=== PATIENT | male | born 1960 | race African-American/Black ===

== ENCOUNTER 2017-09-27 07:48 | Emergency (ER) | payer SELFPAY ==
[~2017-09-27] VITALS: Ht 173.2 cm; Wt 102.0 kg
[2017-09-27 07:50] VITALS: BP 194/122; PULSE 77; RESP 17; TEMP 98.2; O2SAT 100
[2017-09-27 07:59] VITALS: BP 181/117; PULSE 81; RESP 16; O2SAT 100
[2017-09-27] MEDS ORDERED: LOSA25TA PO (08:02)
[2017-09-27] MEDS ORDERED: RESP: ALBUTEROL 2.5 MG/IPRATROPIUM 0.5 MG NEB (SCH) NEB ONE (08:30)
[2017-09-27] MEDS ORDERED: ALBU0.08 NEB (09:04)
[2017-09-27] MEDS ORDERED: HUMIBIDDM PO (09:04)
--- NOTE | 2017-09-27 09:04 | RADRPT ---
EXAM DATE/TIME: 09/27/2017 08:50 [facility] COMPARISON: No previous studies available for comparison. INDICATIONS : Shortness of breath with history of asthma. MEDICAL HISTORY : Asthma SURGICAL HISTORY : None. ENCOUNTER: Initial ACUITY: 2 days PAIN SCORE: LOCATION: Bilateral chest FINDINGS: Portable AP view of the chest demonstrates a normal-sized cardiac silhouette. No effusion, consolidat ion, or pneumothorax is visualized. The bones and soft tissues demonstrate no acute abnormality. CONCLUSION: No acute cardiopulmonary abnormality is identified. Timothy Bernal MD on September 27, 2017 at 9:01 Board Certified Radiologist. This report was verified electronically.
--- NOTE | 2017-09-27 09:04 | PD ---
HPI Chief Complaint: Cold / Flu Symptoms Time Seen by Provider: 07:58 Travel History International Travel<30 days: No Contact w/Intl Traveler<30days: No Traveled to known affect area: No History of Present Illness HPI To 57-year-old man who presents emergent department complaining of cough cold symptoms been ongoing for the past month or so. States he's had some productive cough. A little bit of congestion. No fevers or chills. Several family members have also been sick. Does not smoke. Otherwise has been doing well. History Past Medical History Narrative Medical Hypertension Influenza Vaccination: No Past Surgical History Surgical History: No Previous Surgery Social History Alcohol Use: Yes (OCCASIONALLY) Tobacco Use: No Allergies-Medications (Allergen,Severity, Reaction): Coded Allergies: No Known Allergies (Unverified , 09/27/17) Reported Meds & Prescriptions Reported Meds & Active Scripts Active Reported Losartan (Losartan Potassium) 25 Mg Tab 10 Mg PO HS Review of Systems Except as stated in HPI: all other systems reviewed are Neg Physical Exam Narrative GENERAL: 57-year-old man, no acute distress. SKIN: Focused skin assessment warm/dry. ENT: No nasal bleeding or discharge. Mucous membranes pink and moist. NECK: Trachea midline. No JVD. CARDIOVASCULAR: Regular rate and rhythm. No murmur appreciated. RESPIRATORY: No respiratory distress resting sounds are little bit distant, possibly diminished. GASTROINTESTINAL: Abdomen soft, non-tender, nondistended. Hepatic and splenic margins not palpable. MUSCULOSKELETAL: No obvious deformities. No clubbing. No cyanosis. No edema. NEUROLOGICAL: Awake and alert. No obvious cranial nerve deficits. Motor grossly within normal limits. Normal speech. PSYCHIATRIC: Appropriate mood and affect; insight and judgment normal. Data Data Last Documented VS Vital Signs Date Time Temp Pulse Resp B/P (MAP) Pulse Ox O2 Delivery O2 Flow Rate FiO2 09/27/17 07:59 81 16 181/117 (138) 100 Room Air 09/27/17 07:50 98.2 Orders Orders Chest, Single Ap (09/27/17 ) Albuterol-Ipratropium Neb (Duoneb Neb) (09/27/17 08:30) MDM Medical Decision Making Medical Screen Exam Complete: Yes Emergency Medical Condition: Yes Interpretation(s) My interpretation of chest x-ray: Heart borders are crisp, diaphragms are crisp , no infiltrate. Differential Diagnosis URI, congestion, pneumonia, reactive airway disease, other Narrative Course Medical decision making INITIAL cause a 57-year-old who presents emergent department months worth of cough congestion symptoms. He is improved after bronchodilators. He's had some trouble with "bronchitis" in the past. No fevers. I don't think he benefit from antibiotics. We'll recommend continue bronchodilators. He does have a nebulizer at home. Diagnosis Primary Impression: Bronchitis Additional Instructions: Use albuterol before 6 hours until symptoms resolve. Take Mucinex as prescribed. Follow-up with your primary doctor for not well in the next 2-4 days. Med/Other Pt SpecificInfo: Prescription(s) given Scripts Dextromethorphan-Guaifenesin (Mucinex DM) 30-600 Mg Tab 2 TAB PO BID Y for CHEST CONGESTION AND/OR COUGH, #30 TAB 0 Refills Prov: Willem Mcdonald MD 09/27/17 Albuterol Neb (Albuterol Neb) 2.5 Mg/3 Ml Neb 2.5 MG NEB TID NEB Y for SHORTNESS OF BREATH, #60 NEBULE 0 Refills Prov: Willem Mcdonald MD 09/27/17 Disposition: 01 DISCHARGE HOME Condition: Stable Willem Mcdonald MD Sep 27, 2017 09:04
== END 2017-09-27 09:22 | disposition home or self-care (01) ==
LOC: NEPC 07:48
DX: J40 Bronchitis, not specified as acute or chronic (principal); I10 Essential (primary) hypertension
CPT/HCPCS: 71010; 94664; 99284

== ENCOUNTER 2018-01-09 20:10 | Emergency (ER) | payer OTHER ==
[~2018-01-09 20:10] MED LIST: ALBU0.08 NEB; HUMIBIDDM PO; LOSA25TA PO
[2018-01-09 20:13] VITALS: BP 139/63; PULSE 101; RESP 16; TEMP 98.7; O2SAT 99
[2018-01-09] MEDS ORDERED: ZITHTAB PO (21:27)
[2018-01-09] MEDS ORDERED: PRED50 PO (21:27)
--- NOTE | 2018-01-09 21:27 | PD ---
HPI Chief Complaint: Cold / Flu Symptoms Time Seen by Provider: 20:24 Travel History International Travel<30 days: No Contact w/Intl Traveler<30days: No Traveled to known affect area: No History of Present Illness HPI 57-year-old male presents to the emergency department for evaluation of cough and chest congestion persistent 2 months. Patient states initially they told him it was his medicine appropriately took him off that. He has been treated for bronchitis. He states the cough symptoms improved a little bit but it persists. It is nonproductive. His throat is sore. Mild to moderate in severity. Worse with cough and swallowing. Denies any fever or chills. Denies any chest pain. No nausea or vomiting. No other symptoms to report. PFSH Past Medical History Cardiovascular Problems: Yes (HTN) Hypertension: Yes Social History Alcohol Use: Yes (OCCASIONALLY) Tobacco Use: No Substance Use: No Allergies-Medications (Allergen,Severity, Reaction): Coded Allergies: No Known Allergies (Unverified , 09/27/17) Reported Meds & Prescriptions Reported Meds & Active Scripts Active Prednisone 50 Mg Tab 50 Mg PO DAILY 5 Days Zithromax Z-Cipriano (Azithromycin) 250 Mg Dspk 250 Mg PO DIRECTED 500 MG (2 tabs) day 1, then 1 tab days 2-5. Mucinex DM (Dextromethorphan-Guaifenesin) 30-600 Mg Tab 2 Tab PO BID PRN Albuterol Neb (Albuterol Sulfate) 2.5 Mg/3 Ml Neb 2.5 Mg NEB TID NEB PRN Reported Losartan (Losartan Potassium) 25 Mg Tab 10 Mg PO HS Review of Systems Except as stated in HPI: all other systems reviewed are Neg Physical Exam Narrative GENERAL: Well-nourished male patient, ambulatory and in no acute distress. SKIN: Focused skin assessment warm/dry. HEAD: Atraumatic. Normocephalic. EYES: Pupils equal and round. No scleral icterus. No injection or drainage. ENT: No nasal bleeding or discharge. Mucous membranes pink and moist. NECK: Trachea midline. No JVD. CARDIOVASCULAR: Elevated rate RESPIRATORY: No accessory muscle use. Even respirations GASTROINTESTINAL: Abdomen nondistended MUSCULOSKELETAL: No obvious deformities. No clubbing. No cyanosis. No edema. NEUROLOGICAL: Awake and alert. No obvious cranial nerve deficits. Motor grossly within normal limits. Normal speech. PSYCHIATRIC: Appropriate mood and affect; insight and judgment normal. Data Data Last Documented VS Vital Signs Date Time Temp Pulse Resp B/P (MAP) Pulse Ox O2 Delivery O2 Flow Rate FiO2 01/09/18 21:30 01/09/18 20:13 98.7 101 16 99 Orders Orders Chest, Pa & Lat (01/09/18 ) Influenzae A/B Antigen (01/09/18 20:26) Ed Discharge Order (01/09/18 21:28) MDM Medical Decision Making Medical Screen Exam Complete: Yes Emergency Medical Condition: Yes Medical Record Reviewed: Yes Differential Diagnosis Kevin cough versus pneumonia versus influenza versus common cold versus bronchitis Narrative Course 57-year-old male presents to emergency department for evaluation of cough and chest congestion. Patient appears without distress. He does have a coarse cough. Influenza screen is negative. Chest x-rays without acute cardiopulmonary disease. I discussed with the patient treatment plan options. I'll start him on azithromycin and a 5 day course of oral prednisone. I've encouraged him to follow-up with primary care provider. He agrees to return immediately with any acute worsening of symptoms. Diagnosis Primary Impression: Upper respiratory infection Qualified Codes: J06.9 - Acute upper respiratory infection, unspecified Referrals: Primary Care Physician Patient Instructions: General Instructions, Upper Respiratory Infection (ED) Departure Forms: Tests/Procedures, Work Release Enter return to work date: Jan 11, 2018 Additional Instructions: Humidified air may help to alleviate symptoms Follow up with a primary care provider Return to the ED with any acute worsening of symptoms Med/Other Pt SpecificInfo: Prescription(s) given Scripts Prednisone (Prednisone) 50 Mg Tab 50 MG PO DAILY for 5 Days, #5 TAB 0 Refills Prov: Esperanza Magallanes 01/09/18 Azithromycin (Zithromax Z-Cipriano) 250 Mg Dspk 250 MG PO DIRECTED for Infection, #1 DSPK 0 Refills 500 MG (2 tabs) day 1, then 1 tab days 2-5. Prov: Esperanza Magallanes 01/09/18 Disposition: 01 DISCHARGE HOME Condition: Stable Esperanza Magallanes Jan 09, 2018 21:27
--- NOTE | 2018-01-09 21:41 | RADRPT ---
EXAM DATE/TIME: 01/09/2018 20:44 [facility] COMPARISON: CHEST SINGLE AP, September 27, 2017, 8:50. INDICATIONS : Cough and shortness of breath. MEDICAL HISTORY : Hypertension. SURGICAL HISTORY : None. ENCOUNTER: Initial ACUITY: 1 month PAIN SCORE: 0/10 LOCATION: Bilateral chest FINDINGS: There is mild right apical pleural thickening which is unchanged. No evidence of infiltrate or effusi on. Cardiac contours are stable and satisfactory. Thoracic skeleton appears intact. CONCLUSION: No acute disease Timothy Pierre MD on January 09, 2018 at 21:39 Board Certified Radiologist. This report was verified electronically.
== END 2018-01-09 21:31 | disposition home or self-care (01) ==
LOC: NED 20:10
DX: J06.9 Acute upper respiratory infection, unspecified (principal); I10 Essential (primary) hypertension; Z79.899 Other long term (current) drug therapy
CPT/HCPCS: 71046; 87804; 99284